=== PATIENT | male | born 1945 | race Caucasian/White ===

== ENCOUNTER 2016-07-18 06:03 | Day surgery (SDC) | payer MEDICARE, OTHER ==
[~2016-07-18] VITALS: Ht 188 cm; Wt 88.8 kg
[~2016-07-18 06:03] MED LIST: LISI-126 PO; LOSA25TA34 PO
[2016-07-18 06:05] VITALS: BP 153/82; PULSE 71; RESP 16; TEMP 98.1; O2SAT 95; Ht 188 cm; Wt 88.8 kg
--- OUTSIDE RECORDS SUMMARY | 2016-07-18 06:07 | XMS REPORT | Referral Summary ---
Author Author [facility] Organization [facility] Address Unknown Phone Unavailable Care Team Providers Care Case Assistant Name Role Phone Dillan Feldman Primary Care Physician [phone] Encounter Date(s): 08/02/15 - 08/02/15 [facility] [address] [place] [address] Discharge Diagnosis: Prostate cancer Discharge Diagnosis: Actinic keratosis Discharge Diagnosis: Hyperlipidemia Discharge Diagnosis: H/O vitamin D deficiency Discharge Diagnosis: Myalgia Discharge Diagnosis: Essential hypertension Discharge Diagnosis: Benign neoplasm of colon (disorder) Discharge Diagnosis: BPH (benign prostatic hypertrophy) Discharge Disposition: 01-Home or Self Care Attending Physician: Shahid Feldman MD Admitting Physician: Shahid Feldman MD Vital Signs Most recent to 1 oldest [Reference Range]: Temperature Tympanic 36.1 degC [36.6-38.1 degC] *LOW* (08/02/15 8:42 AM) Peripheral Pulse 88 bpm Rate [60-100 bpm] (08/02/15 8:42 AM) Blood Pressure 140/70 mmHg [90-140/60-90 mmHg] (08/02/15 8:42 AM) Mean Arterial 93 mmHg Pressure, Cuff (08/02/15 8:42 AM) Problem List Condition Effective Dates Status Health Status Informant Actinic keratosis Active (disorder)(Confirmed ) Actinic Active keratosis(Confirmed) Adenomatous colon Active polyp(Confirmed) Backache Active (finding)(Confirmed) Backache(Confirmed) Active Benign neoplasm of Active colon (disorder)(Confirmed ) BPH (benign Active prostatic hypertrophy)(Confirm ed) Chicken Active pox(Confirmed) Colonic Active polyps(Confirmed) Dyslipidemia(Confirm Active ed) Epididymal Active pain(Confirmed) Essential Active hypertension (disorder)(Confirmed ) Fibula Active fracture(Confirmed) Hyperlipidemia(Confi Active rmed) Hypertension(Confirm Active ed) Peptic ulcer 1974 Active disease(Confirmed) Prostate 2013 Active cancer(Confirmed) Thrombocytopenia(Con 2010 Active firmed) Thrombocytopenic Active disorder (disorder)(Confirmed ) Tubular adenoma of Active rectum(Confirmed) Ulcers(Confirmed) Active Allergies, Adverse Reactions, Alerts No Known Medication Allergies Medications elppa CoQ10 100 mg, Oral, Daily, 0 Refill(s) Start Date: 12/24/13 Status: Ordered Glucosamine Chondroitin MSM Complex 2 tabs, Oral, Daily, 0 Refill(s) Start Date: 12/24/13 Status: Ordered ibuprofen 200 mg, Oral, Daily, as needed for pain, 0 Refill(s) Start Date: 12/24/13 Status: Ordered losartan 50 mg oral tablet 25 mg 0.5 tabs, Oral, Daily, WILL BE DUE FOR APPT IN JULY, # 45 tabs, 0 Refill(s) , Pharmacy: [facility] #[id number], 0.5 tabs Oral Daily,Instr:WILL BE DUE FOR APPT IN JULY Start Date: 04/20/15 Status: Ordered Lutein 20 mg oral tablet 1 tabs, Oral, Daily, # 30 tabs, 0 Refill(s) Start Date: 12/24/13 Status: Ordered magnesium citrate 500 mL, Oral, Once, 0 Refill(s) Start Date: 12/24/13 Status: Ordered multivitamin 1, Oral, Daily, 0 Refill(s) Start Date: 12/24/13 Status: Ordered Probiotic Formula 1 caps, Oral, Daily, Abdominal Cramping, 0 Refill(s) Start Date: 12/24/13 Status: Ordered tamsulosin 0.4 mg oral capsule 0.8 mg 2 caps, Oral, Daily, # 180, 1 Refill(s) Start Date: 08/02/15 Status: Ordered Vitamin D with Minerals oral tablet 1 tabs, Oral, Daily, 0 Refill(s) Start Date: 12/24/13 Status: Ordered Results Hematology Most recent to 1 oldest [Reference Range]: Sed Rate [0-15] 2 (08/02/15 10:00 AM) Chemistry Most recent to 1 oldest [Reference Range]: Sodium Lvl [135-144 141 mEq/L mEq/L] (08/02/15 10:00 AM) Potassium Lvl 4.2 mEq/L [3.5-5.2 mEq/L] (08/02/15 10:00 AM) Chloride [99-111 106 mEq/L mEq/L] (08/02/15 10:00 AM) CO2 [23-31 mEq/L] 29 mEq/L (08/02/15 10:00 AM) AGAP [3-20] 6 (08/02/15 10:00 AM) BUN [8-26 mg/dL] 23 mg/dL (08/02/15 10:00 AM) Glucose Lvl [70-99 94 mg/dL mg/dL] (08/02/15 10:00 AM) Creatinine Lvl 1.31 mg/dL [0.72-1.25 mg/dL] *HI* (08/02/15 10:00 AM) eGFR [>60 mL/min] 54 mL/min 1 *ABN* (08/02/15 10:00 AM) Calcium Lvl 9.8 mg/dL [8.9-10.5 mg/dL] (08/02/15 10:00 AM) Total CK [30-200 147 U/L U/L] (08/02/15 10:00 AM) 1Result Comment: Multiply eGFR results by 1.21 for race. Immunizations Vaccine Date Refusal Reason tetanus/diphth/pertuss (Tdap) adult/adol 06/16/06 influenza virus vaccine, inactivated 01/18/15 influenza virus vaccine, inactivated1 12/24/13 influenza virus vaccine, live 01/04/13 pneumococcal 23-polyvalent vaccine 08/10/12 pneumococcal 23-polyvalent vaccine 02/09/07 1Result Comment: [12/24/2013] SEE SCANNED NOTE Procedures Procedure Date Related Diagnosis Body Site Destruction (eg, laser surgery, 08/02/15 electrosurgery, cryosurgery, chemosurgery, surgical curettement), premalignant lesions (eg, actinic keratoses); first lesion Destruction (eg, laser surgery, 08/02/15 electrosurgery, cryosurgery, chemosurgery, surgical curettement), premalignant lesions (eg, actinic keratoses); second through 14 lesions, each (List separately in addition to code for first lesion) C6-7 translaminar 06/04/12 S/P cardiac catheterization 2009 S/P colonoscopy1, 2 04/14/06 S/P hemorrhoidectomy 2006 S/P ORIF fibula 1983 Hernia repair 1967 H/O circumcision 1957 Bone marrow biopsy 1WNL, fam hx colon ca; repeat 5 years 2Colonscopy on 05/27/11 neg. 5 year follow up advised - due 2016. Social History Social History Type Response Smoking Status Never smoker Assessment and Plan Extracted from: Title: CRMMP-6 Month Author: Shahid Feldman MD Date: 08/02/15 Impression and Plan Diagnosis H/O vitamin D deficiency (GMZ51-DM Z86.39, Discharge, Medical). BPH (benign prostatic hypertrophy) (DYT84-BG N40.0, Discharge, Medical). Myalgia (VMK68-VM M79.1, Discharge, Medical). Actinic keratosis (LDP15-RA L57.0, Discharge, Medical). Essential hypertension (YHQ30-CM I10, Discharge, Medical). Hyperlipidemia (UYL51-PY E78.5, Discharge, Medical). Benign neoplasm of colon (disorder) (URG42-EF D12.6, Discharge, Medical). Prostate cancer (BMN80-XP C61, Discharge, Medical). Plan: Long discussion as documented above. He will continue to follow with Dr. Teague and Dr. Osullivan. Will check BMP, Sed Rate, CPK, Vitamin D level. Cryotherapy to the left cheek and left evangelical. After August 11, 2015, will check fasting lipid panel. Follow up in 6 months for blood pressure follow up or sooner if needed. Orders Orders (Selected) Outpatient Orders Future (On Hold) BMP: CPK: Fasting Lipid Profile: Sedimentation Rate: Vitamin D 25 Hydroxy Level: .
--- OUTSIDE RECORDS SUMMARY | 2016-07-18 06:07 | XMS REPORT | Referral Summary ---
Author Author [facility] Organization [facility] Address Unknown Phone Unavailable Care Team Providers Care Dairy Feed Sales Consultant Name Role Phone Dillan Feldman Primary Care Physician [phone] Encounter VC Date(s): 09/28/15 - 09/28/15 [facility] [address] [place] [address] Discharge Diagnosis: Depression with anxiety Discharge Disposition: 01-Home or Self Care Attending Physician: Krista Dumont APRN Admitting Physician: Krista Dumont APRN Vital Signs Most recent to 1 oldest [Reference Range]: Peripheral Pulse 92 bpm Rate [60-100 bpm] (09/28/15 11:01 AM) Blood Pressure 146/76 mmHg [90-140/60-90 mmHg] *HI* (09/28/15 11:01 AM) Problem List Condition Effective Dates Status [...] Active rmed) Hypertension(Confirm Active ed) Peptic ulcer 1973 Active disease(Confirmed) Prostate 2013 Active cancer(Confirmed) Thrombocytopenia(Con 2010 Active firmed) Thrombocytopenic Active disorder (disorder)(Confirmed ) Tubular adenoma of Active rectum(Confirmed) Ulcers(Confirmed) Active Allergies, Adverse Reactions, Alerts No Known Medication Allergies Medications citalopram 10 mg oral tablet 10 mg 1 tabs, Oral, Daily, # 30 tabs, 0 Refill(s), Pharmacy: [facility] # [id number], 1 tabs Oral Daily Start Date: 09/14/15 Status: Ordered elppa CoQ10 100 mg, Oral, Daily, 0 Refill(s) Start Date: 12/24/13 Status: Ordered Glucosamine Chondroitin MSM Complex 2 tabs, Oral, Daily, 0 Refill(s) Start Date: 12/24/13 Status: Ordered ibuprofen 200 mg, Oral, Daily, as needed for pain, 0 Refill(s) Start Date: 12/24/13 Status: Ordered losartan 50 mg oral tablet 25 mg 0.5 tabs, Oral, Daily, # 45 tabs, 1 Refill(s), Pharmacy: [facility] #[id number], 0.5 tabs Oral Daily Start Date: 08/08/15 Status: Ordered Lutein 20 mg oral tablet [...] Refill(s) Start Date: 12/24/13 Status: Ordered Results No data available for this section Immunizations Vaccine Date Refusal Reason tetanus/diphth/pertuss (Tdap) adult/adol 06/16/06 influenza virus vaccine, inactivated 01/18/15 influenza virus vaccine, inactivated1 12/24/13 influenza virus vaccine, live 01/04/13 pneumococcal 23-polyvalent vaccine 08/10/12 pneumococcal 23-polyvalent vaccine 02/09/07 zoster vaccine live 08/03/15 1Result Comment: [12/24/2013] SEE SCANNED NOTE Procedures Procedure Date Related Diagnosis Body Site C6-7 translaminar 06/04/12 S/P cardiac catheterization 2009 S/P colonoscopy1, 2 04/14/06 S/P hemorrhoidectomy 2006 S/P ORIF fibula 1982 Hernia repair 1967 H/O circumcision 1957 Bone marrow biopsy 1WNL, fam hx colon ca; repeat 5 years 2Colonscopy on 05/27/11 neg. 5 year follow up advised - due 2016. Social History Social History Type Response Smoking Status Never smoker Assessment and Plan No data available for this section
--- OUTSIDE RECORDS SUMMARY | 2016-07-18 06:07 | XMS REPORT | Referral Summary ---
Author Author [facility] Organization [facility] Address Unknown Phone Unavailable Care Team Providers Care Director Of Manufacturing Name Role Phone Dillan Feldman Primary Care Physician [phone] Encounter VC Date(s): 10/25/14 - 10/25/14 [facility] [address] [place] [address] Discharge Diagnosis: Depression with anxiety Discharge Disposition: 01-Home or Self Care Attending Physician: Krista Dumont APRN Admitting Physician: Krista Dumont APRN Vital Signs Most recent to 1 oldest [Reference Range]: Peripheral Pulse 74 bpm Rate [60-100 bpm] (10/25/14 11:05 AM) Blood Pressure 112/60 mmHg [90-140/60-90 mmHg] (10/25/14 11:05 AM) Problem List Condition Effective Dates Status [...] 0 Refill(s) Start Date: 12/24/13 Status: Ordered Flomax 0.4 mg oral capsule 0.4 mg 1 caps, Oral, Daily, # 90 caps, 4 Refill(s), Pharmacy: [facility] # [id number], 1 caps Oral Daily Start Date: 04/17/15 Status: Ordered Flomax 0.4 mg oral capsule 1 caps, Oral, Bedtime (once a day), # 90 caps, 2 Refill(s), Pharmacy: [facility], 1 caps Oral Bedtime (once a day) Start Date: 05/26/14 Status: Ordered Glucosamine Chondroitin MSM Complex 2 tabs, Oral, Daily, 0 Refill(s) Start Date: 12/24/13 Status: Ordered ibuprofen 200 mg, Oral, Daily, as needed for pain, 0 Refill(s) Start Date: 12/24/13 Status: Ordered losartan 50 mg oral tablet 25 mg 0.5 tabs, Oral, Daily, WILL BE DUE FOR APPT IN JULY, # 45 tabs, 0 Refill(s) , Pharmacy: [facility] #[id number], 0.5 tabs Oral Daily,Instr:WILL BE DUE FOR [...] 0 Refill(s) Start Date: 12/24/13 Status: Ordered Vitamin D with Minerals oral [...] translaminar 06/04/12 S/P cardiac catheterization 2009 S/P colonoscopy1 04/14/06 S/P hemorrhoidectomy 2006 S/P ORIF fibula 1983 Hernia repair 1967 H/O circumcision 1957 Bone marrow biopsy 1WNL, fam hx colon ca; repeat 5 years Social History Social History Type Response Smoking Status Never smoker Assessment and Plan No data available for this section
--- OUTSIDE RECORDS SUMMARY | 2016-07-18 06:07 | XMS REPORT | Referral Summary ---
Author Author [facility] Organization [facility] Address Unknown Phone Unavailable Care Team Providers Care Machine Tool Electrician Name Role Phone Dillan Feldman Primary Care Physician [phone] Encounter VC Date(s): 10/23/15 - 10/23/15 [facility] [address] [place], [place] [address] Discharge Disposition: 01-Home or Self Care Attending Physician: Arnol Teague MD Admitting Physician: Arnol Teague MD Vital Signs Most recent to 1 oldest [Reference Range]: Blood Pressure 136/84 mmHg [90-140/60-90 mmHg] (10/23/15 1:18 PM) Problem List Condition Effective Dates Status Health [...] Daily, # 30 tabs, 0 Refill(s), Pharmacy: [facility] # [id number], 1 tabs Oral Daily Start Date: 09/14/15 [...] Daily, # 45 tabs, 1 Refill(s), Pharmacy: [facility] #[id number], 0.5 tabs Oral Daily Start Date: 08/08/15 [...] 0.8 mg 2 caps, Oral, Daily, # 180 caps, 0 Refill(s), Pharmacy: [facility] #[id number], 2 caps Oral Daily Start Date: 10/02/15 Status: Ordered tamsulosin 0.4 mg oral capsule [...]
--- OUTSIDE RECORDS SUMMARY | 2016-07-18 06:07 | XMS REPORT ---
Author Author Panchito Camacho Organization [employer] Address Unknown Phone Unavailable Care Team Providers Care Production Director Name Role Phone Panchito Camacho CP Unavailable Allergies No Known Allergies Problems Problem Type Condition ICD-9 Code Onset Dates Condition Status Problem HTN [Hypertension] 401.9 Active Medications No Known Medications Results No Known Results Summary Purpose [employer] Submission
--- OUTSIDE RECORDS SUMMARY | 2016-07-18 06:07 | XMS REPORT | Referral Summary ---
Author Author [facility] Organization [facility] Address Unknown Phone Unavailable Care Team Providers Care Coordinator Volunteer Services Name Role Phone Dillan Feldman Primary Care Physician [phone] Encounter VC Date(s): 08/04/14 - 08/04/14 [facility] [address] [place] [address] Discharge Diagnosis: Prostate cancer Discharge Diagnosis: Adenomatous colon polyp Discharge Diagnosis: Actinic keratosis Discharge Diagnosis: Hyperlipidemia Discharge Diagnosis: Essential hypertension Discharge Diagnosis: Thrombocytopenic disorder Discharge Disposition: 01-Home or Self Care Attending Physician: Shahid Feldman MD Admitting Physician: Shahdi Feldman MD Vital Signs Most recent to 1 oldest [Reference Range]: Temperature Tympanic 37 degC [36.6-38.1 degC] (08/04/14 8:35 AM) Peripheral Pulse 72 bpm Rate [60-100 bpm] (08/04/14 8:35 AM) Blood Pressure 146/70 mmHg [90-140/60-90 mmHg] *HI* (08/04/14 8:35 AM) Problem List Condition Effective Dates Status [...] # 90 caps, 2 Refill(s), Pharmacy: [facility], 1 caps Oral Bedtime (once a day) Start Date: 05/26/14 Status: Ordered Glucosamine Chondroitin MSM Complex 2 tabs, Oral, Daily, 0 Refill(s) Start Date: 12/24/13 Status: Ordered ibuprofen 200 mg, Oral, Daily, as needed for pain, 0 Refill(s) Start Date: 12/24/13 Status: Ordered losartan 50 mg oral tablet 25 mg 0.5 tabs, Oral, Daily, # 45 tabs, 3 Refill(s), 0.5 tabs Oral Daily Start Date: 09/16/14 Status: Ordered Lutein 20 mg oral tablet 1 tabs, Oral, Daily, # 30 tabs, 0 Refill(s) Start Date: 12/24/13 Status: Ordered magnesium citrate 500 mL, Oral, Once, 0 Refill(s) Start Date: 12/24/13 Status: Ordered multivitamin 1, Oral, Daily, 0 Refill(s) Start Date: 12/24/13 Status: Ordered Probiotic Formula 1 caps, Oral, Daily, Abdominal Cramping, 0 Refill(s) Start Date: 12/24/13 Status: Ordered Vitamin C 150 mg, Oral, Daily, 0 Refill(s) Start Date: 12/24/13 Status: Ordered Vitamin D with Minerals oral tablet 1 tabs, Oral, Daily, 0 Refill(s) Start Date: 12/24/13 Status: Ordered Results No data available for this section Immunizations Vaccine Date Refusal Reason tetanus/diphth/pertuss (Tdap) adult/adol 06/16/06 influenza virus vaccine, inactivated1 12/24/13 influenza virus vaccine, live 01/04/13 pneumococcal 23-polyvalent vaccine 08/10/12 pneumococcal 23-polyvalent vaccine 02/09/07 1Result Comment: [12/24/2013] SEE SCANNED NOTE Procedures Procedure Date Related Diagnosis Body Site Destruction (eg, laser surgery, 08/04/14 electrosurgery, cryosurgery, chemosurgery, surgical curettement), premalignant lesions (eg, actinic keratoses); first lesion Destruction (eg, laser surgery, 08/04/14 electrosurgery, cryosurgery, chemosurgery, surgical curettement), premalignant lesions (eg, actinic keratoses); first lesion Destruction (eg, laser surgery, 08/04/14 electrosurgery, cryosurgery, chemosurgery, surgical curettement), premalignant lesions (eg, actinic keratoses); first lesion Destruction (eg, laser surgery, 08/04/14 electrosurgery, cryosurgery, chemosurgery, surgical curettement), premalignant lesions (eg, actinic keratoses); second through 14 lesions, each (List separately in addition to code for first lesion) Destruction (eg, laser surgery, 08/04/14 electrosurgery, cryosurgery, chemosurgery, surgical curettement), premalignant lesions (eg, actinic keratoses); second through 14 lesions, each (List separately in addition to code for first lesion) Destruction (eg, laser surgery, 08/04/14 electrosurgery, cryosurgery, chemosurgery, surgical curettement), premalignant lesions [...] smoker Assessment and Plan Extracted from: Title: Ambulatory Patient Education Author: Shahid Feldman MD Date: Family Medicine Actinic Keratosis Actinic keratosis is a precancerous growth on the skin. This means it could develop into skin cancer if it is not treated. About 1% of actinic keratoses turn into skin cancer within a year. It is important to have all such growths removed to prevent them from developing into skin cancer. CAUSES Actinic keratosis is caused by getting too much ultraviolet (UV) radiation from the sun or other UV light sources. RISK FACTORS Factors that increase your chances of getting actinic keratosis include: Having light-colored skin and blue eyes. Having blonde or red hair. Spending a lot of time in the sun. Age. The risk of actinic keratosis increases with age. SYMPTOMS Actinic keratosis growths look like scaly, rough spots of skin. They can be as small as a pinhead or as big as a quarter. They may itch, hurt, or feel sensitive. Sometimes there is a little tag of pink or [place] skin growing off them. In some cases, actinic keratoses are easier felt than seen. They do not go away with the use of moisturizing lotions or creams. Actinic keratoses appear most often on areas of skin that get a lot of sun exposure. These areas include the: Scalp. Face. Ears. Lips. Upper back. Backs of the hands. Forearms. DIAGNOSIS Your caregiver can usually tell what is wrong by performing a physical exam. A tissue sample (biopsy ) may also be taken and examined under a microscope. TREATMENT Actinic keratosis can be treated several ways. Most treatments can be done in your caregiver's office. Treatment options may include: Curettage. A tool is used to gently scrape off the growth. Cryosurgery. Liquid nitrogen is applied to the growth to freeze it. The growth eventually falls off the skin. Medicated creams, such as 5-fluorouracil or imiquimod. The medicine destroys the cells in the growth. Chemical peels. Chemicals are applied to the growth and the outer layers of skin are peeled off. Photodynamic therapy. A drug that makes your skin more sensitive to light is applied to the skin. A strong, blue light is aimed at the skin and destroys the growth. PREVENTION To prevent future sun damage: Try to avoid the sun between 10:00 a.m. and 4:00 p.m. when it is the strongest. Use a sunscreen or sunblock with SPF 30 or greater. Apply sunscreen at least 30 minutes before exposure to the sun. Always wear protective hats, clothing, and sunglasses with UV protection. Avoid medicines, herbs, and foods that increase your sensitivity to sunlight. Avoid tanning beds. HOME CARE INSTRUCTIONS If your skin was covered with a bandage, change and remove the bandage as directed by your caregiver. Keep the treated area dry as directed by your caregiver. Apply any creams as prescribed by your caregiver. Follow the directions carefully. Check your skin regularly for any changes. Visit a skin doctor (steamboat captain ) every year for a skin exam. SEEK MEDICAL CARE IF: Your skin does not heal and becomes irritated, red, or bleeds. You notice any changes or new growths on your skin. Document Released: 05/23/2009 Document Revised: 05/18/2012 Document Reviewed: [employer] Patient Information 2014 [employer] [facility]. No follow up information was provided. Extracted from: Title: CRMMP Author: Shahid Feldman MD Date: 08/04/14 Assessment/Plan Actinic keratosis Liquid nitrogen treatment 2 lesions. Adenomatous colon polyp Repeat colonoscopy due in 2016. Essential hypertension Stable. Continue present care. Hyperlipidemia Check fasting lipids another day. Prostate cancer Following with Dr. Teague. Seems to be stable. Thrombocytopenic disorder Following with Dr. Osullivan, repeat CBC due in March 2015. Neck/back pain and slight right arm weakness discussed. Conservative approach seems appropriate, continue with strengthening exercises as he has been doing and follow-up as needed. Follow-up with me in 6 months. We will send copies of the dictation to Dr. Osullivan and Dr. Teague.
--- OUTSIDE RECORDS SUMMARY | 2016-07-18 06:07 | XMS REPORT | Referral Summary ---
Author Author [facility] Organization [facility] Address Unknown Phone Unavailable Care Team Providers Care Chemical Inspector Name Role Phone Dillan Feldman Primary Care Physician [phone] Encounter VC Date(s): 01/12/16 - 01/12/16 [facility] [address] [place] [address] Discharge Diagnosis: Encounter for immunization Discharge Disposition: 01-Home or Self Care Attending Physician: Joshua Vaca APRN Admitting Physician: Joshua Vaca APRN Vital Signs No data available for this section Problem List Condition Effective Dates Status Health [...] Oral, Daily, # 45 tabs, 1 Refill(s), 0.5 tabs Oral Daily Start Date: 11/22/15 Status: Ordered Lutein 20 mg oral tablet [...] Status: Ordered tamsulosin 0.4 mg oral capsule See Instructions, TAKE TWO CAPSULES BY MOUTH DAILY, # 180 caps, eRx: [facility] #[id number], TAKE TWO CAPSULES BY MOUTH DAILY Start Date: 01/09/16 Status: Ordered Vitamin D with Minerals oral tablet 1 tabs, Oral, Daily, 0 Refill(s) Start Date: 12/24/13 Status: Ordered Results No data available for this section Immunizations Vaccine Date Refusal Reason tetanus/diphth/pertuss (Tdap) adult/adol 06/16/06 influenza virus vaccine, inactivated 01/12/16 influenza virus vaccine, inactivated 01/18/15 influenza virus [...]
--- OUTSIDE RECORDS SUMMARY | 2016-07-18 06:07 | XMS REPORT | Referral Summary ---
Author Author [facility] Organization [facility] Address Unknown Phone Unavailable Care Team Providers Care Mortician Investigator Name Role Phone Dillan Feldman Primary Care Physician [phone] Encounter VC Date(s): 09/14/15 - 09/14/15 [facility], Family [address] [place] [id number] Discharge Disposition: 01-Home or Self Care Attending Physician: Krista Dumont APRN Admitting Physician: Krista Dumont APRN Vital Signs Most recent to 1 oldest [Reference Range]: Peripheral Pulse 78 bpm Rate [60-100 bpm] (09/14/15 10:59 AM) Blood Pressure 128/66 mmHg [90-140/60-90 mmHg] (09/14/15 10:59 AM) Problem List Condition Effective Dates Status [...] Daily, # 30 tabs, 0 Refill(s), Pharmacy: [facility] # [id number], 1 tabs Oral Daily Start Date: 09/14/15 [...] Daily, # 45 tabs, 1 Refill(s), Pharmacy: [facility] #[id number], 0.5 tabs Oral Daily Start Date: 08/08/15 [...]
--- OUTSIDE RECORDS SUMMARY | 2016-07-18 06:07 | XMS REPORT | Referral Summary ---
Author Author [facility] Organization [facility] Address Unknown Phone Unavailable Care Team Providers Care Head Athletic Trainer Name Role Phone Dillan Feldman Primary Care Physician [phone] Encounter VC Date(s): 08/17/15 - 08/17/15 [facility] [address] [place] [address] Discharge Disposition: 01-Home or Self Care Attending Physician: Krista Dumont APRN Admitting Physician: Krista Dumont APRN Vital Signs Most recent to 1 oldest [Reference Range]: Peripheral Pulse 72 bpm Rate [60-100 bpm] (08/17/15 10:57 AM) Blood Pressure 110/64 mmHg [90-140/60-90 mmHg] (08/17/15 10:57 AM) Problem List Condition Effective Dates Status [...] Active disease(Confirmed) Prostate 2013 Active cancer(Confirmed) Thrombocytopenia(Con 2009 Active firmed) Thrombocytopenic Active disorder (disorder)(Confirmed ) [...] Daily, # 45 tabs, 1 Refill(s), Pharmacy: [facility] #[id number], 0.5 tabs Oral Daily Start Date: 08/08/15 [...]
--- OUTSIDE RECORDS SUMMARY | 2016-07-18 06:07 | XMS REPORT | Referral Summary ---
Author Author [facility] Organization [facility] Address Unknown Phone Unavailable Care Team Providers Care Commission Associate Name Role Phone Dillan Feldman Primary Care Physician [phone] Encounter VC Date(s): 08/04/14 - 08/04/14 [facility] [address] [place] [address]- Discharge Diagnosis: Prostate cancer Discharge Diagnosis: Adenomatous [...] day), # 90 caps, 2 Refill(s), Pharmacy: [facility], 1 caps Oral Bedtime (once [...] for any changes. Visit a skin doctor (photography manager ) every year for a skin exam. SEEK MEDICAL CARE IF: Your skin does not heal and becomes irritated, red, or bleeds. You notice any changes or new growths on your skin. Document Released: 05/23/2009 Document Revised: 05/18/2012 Document Reviewed: ExitCare Patient Information 2014 [employer] [facility]. No follow up information was provided. [...]
--- OUTSIDE RECORDS SUMMARY | 2016-07-18 06:07 | XMS REPORT | Referral Summary ---
Author Author [facility] Organization [facility] Address Unknown Phone Unavailable Care Team Providers Care Clinical Documentation Nurse Name Role Phone Dillan Feldman Primary Care Physician [phone] Encounter VC Date(s): 08/04/14 - 08/04/14 [facility] [address] [place] [address]- Discharge Diagnosis: Prostate cancer Discharge Diagnosis: Adenomatous [...] day), # 90 caps, 2 Refill(s), [facility], 1 caps Oral Bedtime (once a [...] for any changes. Visit a skin doctor (meal room hand ) every year for a skin exam. SEEK MEDICAL CARE IF: Your skin does not heal and becomes irritated, red, or bleeds. You notice any changes or new growths on your skin. Document Released: 05/23/2009 Document Revised: 05/18/2012 Document Reviewed: ExitCare Patient Information 2013 [employer]. No follow up information was provided. Extracted [...]
--- OUTSIDE RECORDS SUMMARY | 2016-07-18 06:08 | XMS REPORT | Referral Summary ---
Author Author [facility] Organization [facility] Address Unknown Phone Unavailable Care Team Providers Care Paleontology Teacher Name Role Phone Dillan Feldman Primary Care Physician [phone] Encounter VC Date(s): 07/26/15 - 07/26/15 [facility] [address] [place], [place] [address] Discharge Disposition: 01-Home or Self Care Attending Physician: Arnol Teague MD Admitting Physician: Arnol Teague MD Vital Signs Most recent to 1 oldest [Reference Range]: Respiratory Rate 20 br/min [14-20 br/min] (07/26/15 9:34 AM) Problem List Condition Effective Dates Status [...] Daily, # 90 caps, 4 Refill(s), Pharmacy: [facility] # [id number], 1 caps Oral Daily Start Date: 04/17/15 Status: Ordered Flomax 0.4 mg oral capsule 1 caps, Oral, Bedtime (once a day), # 90 caps, 2 Refill(s), Pharmacy: [facility], 1 caps Oral Bedtime (once a [...] # 45 tabs, 0 Refill(s) , Pharmacy: [facility] #[id number], 0.5 tabs Oral Daily,Instr:WILL BE DUE FOR [...] catheterization 2009 S/P colonoscopy1 04/14/06 S/P hemorrhoidectomy 2007 S/P ORIF fibula 1983 Hernia repair 1967 H/O circumcision 1958 Bone marrow biopsy 1WNL, fam hx colon ca; repeat 5 years Social History Social History Type Response Smoking Status Never smoker Assessment and Plan No data available for this section
--- OUTSIDE RECORDS SUMMARY | 2016-07-18 06:08 | XMS REPORT | Referral Summary ---
Author Author [facility] Organization [facility] Address Unknown Phone Unavailable Care Team Providers Care Coyote Hunter Name Role Phone Dillan Feldman Primary Care Physician [phone] Encounter VC Date(s): 04/17/16 - 04/17/16 [facility] [address] [place] [address] Discharge Diagnosis: Prostate cancer Discharge Diagnosis: Post-op pain Discharge Diagnosis: Essential hypertension Discharge Disposition: 01-Home or Self Care Attending Physician: Shahid Feldman MD Admitting Physician: Shahid Feldman MD Vital Signs Most recent to 1 oldest [Reference Range]: Peripheral Pulse 80 bpm Rate [60-100 bpm] (04/17/16 10:24 AM) Blood Pressure 120/60 mmHg [90-140/60-90 mmHg] (04/17/16 10:24 AM) Problem List Condition Effective Dates Status [...] 1974 Active disease(Confirmed) Prostate 2013 Active cancer(Confirmed) Right bundle branch Active block(Confirmed) Thrombocytopenia(Con 2010 Active firmed) Thrombocytopenic Active disorder (disorder)(Confirmed ) Tubular adenoma of Active rectum(Confirmed) Ulcers(Confirmed) Active Allergies, Adverse Reactions, Alerts No Known Medication Allergies Medications Bactrim DS 800 mg-160 mg oral tablet See Instructions, WILL FINISH TOMORROW, 0 Refill(s) Start Date: 04/17/16 Status: Ordered Dulcolax Stool Softener mg, Oral, Daily, as needed for constipation, 0 Refill(s) Start Date: 04/17/16 Status: Ordered elppa CoQ10 100 mg, Oral, Daily, 0 Refill(s) Start Date: 12/24/13 Status: Ordered Glucosamine Chondroitin MSM Complex 2 tabs, Oral, Daily, 0 Refill(s) Start Date: 12/24/13 Status: Ordered ibuprofen 200 mg, Oral, Daily, as needed for pain, 0 Refill(s) Start Date: 12/24/13 Status: Ordered losartan 25 mg oral tablet 25 mg 1 tabs, Oral, Daily, # 90 tabs, 3 Refill(s), Pharmacy: [facility] # [id number], 1 tabs Oral Daily Start Date: 02/08/16 Status: Ordered Lutein 20 mg oral tablet [...] No data available for this section Immunizations Given and Recorded Vaccine Date Status Refusal Reason tetanus/diphth/pertuss (Tdap) adult/adol 06/16/06 Recorded influenza virus vaccine, inactivated 01/12/16 Given influenza virus vaccine, inactivated 01/18/15 Given influenza virus vaccine, inactivated1 12/24/13 Recorded influenza virus vaccine, live 01/04/13 Given pneumococcal 13-valent conjugate vaccine2 08/10/12 Given pneumococcal 23-polyvalent vaccine 08/10/12 Given pneumococcal 23-polyvalent vaccine 02/09/07 Recorded zoster vaccine live 08/03/15 Given 1Result Comment: [12/24/2013] SEE SCANNED NOTE 2Result Comment: [11/03/2014 Uncharted] Uploaded in Error - CC Procedures Procedure Date Related Diagnosis Body Site [...] smoker Assessment and Plan Extracted from: Title: Postoperative Visit Author: Shahid Feldman MD Date: 04/17/16 Impression and Plan Diagnosis Essential hypertension (OCU30-MB I10, Discharge, Medical). Post-op pain (XVY18-LR G89.18, Discharge, Medical). Prostate cancer (NSZ51-NT C61, Discharge, Medical).
--- OUTSIDE RECORDS SUMMARY | 2016-07-18 06:08 | XMS REPORT | Referral Summary ---
Author Author [facility] Organization [facility] Address Unknown Phone Unavailable Care Team Providers Care Mud Mill Tender Name Role Phone Dillan Feldman Primary Care Physician [phone] Encounter Date(s): 02/08/16 - 02/08/16 [facility] [address] [place] [address] Discharge Diagnosis: Dyslipidemia Discharge Diagnosis: Seborrheic keratoses Discharge Diagnosis: Prostate cancer Discharge Diagnosis: Thrombocytopenia Discharge Diagnosis: Essential hypertension Discharge Diagnosis: Subcutaneous mass Discharge Disposition: 01-Home or Self Care Attending Physician: Shahid Feldman MD Admitting Physician: Shahid Feldman MD Vital Signs Most recent to 1 oldest [Reference Range]: Temperature Tympanic 36 degC [36.6-38.1 degC] *LOW* (02/08/16 2:52 PM) Peripheral Pulse 84 bpm Rate [60-100 bpm] (02/08/16 2:52 PM) Blood Pressure 122/78 mmHg [90-140/60-90 mmHg] (02/08/16 2:52 PM) Problem List Condition Effective Dates Status [...] Daily, # 90 tabs, 3 Refill(s), Pharmacy: [facility] # [id number], 1 tabs Oral Daily Start Date: 02/08/16 [...] BY MOUTH DAILY, # 180 caps, eRx: [facility] #[id number], TAKE TWO CAPSULES BY MOUTH DAILY Start [...] smoker Assessment and Plan Extracted from: Title: CDM OV Author: Shahid Feldman MD Date: 02/08/16 Impression and Plan Diagnosis Dyslipidemia (BNA06-KV E78.5, Discharge, Medical). Essential hypertension (QNK31-UF I10, Discharge, Medical). Prostate cancer (JWZ58-PI C61, Discharge, Medical). Thrombocytopenia (CAB50-XI D69.6, Discharge, Medical). Seborrheic keratoses (GFY58-KO L82.1, Discharge, Medical). Subcutaneous mass (ZAI99-CS R22.9, Discharge, Medical). Orders Orders (Selected) Outpatient Orders Future (On Hold) BMP: Prescriptions Prescribed losartan 25 mg oral tablet: 25 mg=1 tabs, Oral, Daily, 90 tabs, 3 Refill(s).
--- OUTSIDE RECORDS SUMMARY | 2016-07-18 06:08 | XMS REPORT | Referral Summary ---
Author Author [facility] Organization [facility] Address Unknown Phone Unavailable Care Team Providers Care Ambulance Dispatcher Name Role Phone Dillan Feldman Primary Care Physician [phone] Encounter VC Date(s): 12/11/15 - 12/11/15 [facility] [address] [place], [place] [address] Discharge Disposition: 01-Home or Self Care Attending Physician: Arnol Teague MD Admitting Physician: Arnol Teague MD Vital Signs Most recent to 1 oldest [Reference Range]: Blood Pressure 130/80 mmHg [90-140/60-90 mmHg] (12/11/15 2:19 PM) Problem List Condition Effective Dates Status [...] Daily, # 30 tabs, 0 Refill(s), Pharmacy: [facility] # [id number], 1 tabs Oral Daily Start Date: 09/14/15 [...] Daily, # 180 caps, 0 Refill(s), Pharmacy: [facility] #[id number], 2 caps Oral Daily Start Date: 10/02/15 [...] Date Related Diagnosis Body Site C6-7 translaminar 3/28/13 S/P cardiac catheterization 2009 S/P colonoscopy1, 2 [...]
--- OUTSIDE RECORDS SUMMARY | 2016-07-18 06:08 | XMS REPORT | Referral Summary ---
Author Author [facility] Organization [facility] Address Unknown Phone Unavailable Care Team Providers Care Ad Taker Name Role Phone Dillan Feldman Primary Care Physician [phone] Encounter VC Date(s): 08/04/14 - 08/04/14 [facility] [address] [place] [address]- Discharge Diagnosis: Prostate cancer Discharge Diagnosis: Adenomatous [...] day), # 90 caps, 2 Refill(s), Pharmacy: [facility], 1 caps Oral Bedtime (once [...] for any changes. Visit a skin doctor (director of analytical development ) every year for a skin exam. SEEK MEDICAL CARE IF: Your skin does not heal and becomes irritated, red, or bleeds. You notice any changes or new growths on your skin. Document Released: 05/23/2009 Document Revised: 05/18/2012 Document Reviewed: ExitCare Patient Information 2014 [employer] [facility]. No follow up information was provided. [...]
--- OUTSIDE RECORDS SUMMARY | 2016-07-18 06:08 | XMS REPORT | Referral Summary ---
Author Author [facility] Organization [facility] Address Unknown Phone Unavailable Care Team Providers Care Low Emission Automobile Designer Name Role Phone Dillan Feldman Primary Care Physician [phone] Encounter Date(s): 10/31/15 - 10/31/15 [facility] [address] [place], [place] [address] Discharge Diagnosis: PC (prostate cancer) Discharge Disposition: 01-Home or Self Care Attending Physician: Arnol Teague MD Admitting Physician: Arnol Teague MD Vital Signs No data available for this [...] # 30 tabs, 0 Refill(s), Pharmacy: [facility] # [id number], 1 tabs Oral Daily Start Date: 09/14/15 [...] # 45 tabs, 1 Refill(s), Pharmacy: [facility] #[id number], 0.5 tabs Oral Daily Start Date: 08/08/15 [...] Daily, # 180 caps, 0 Refill(s), Pharmacy: [facility] #[id number], 2 caps Oral Daily Start Date: 10/02/15 [...] smoker Assessment and Plan Extracted from: Title: Office Visit Note Author: Arnol Teague MD Date: 10/31/15 Assessment/Plan 1.PC (prostate cancer)
--- OUTSIDE RECORDS SUMMARY | 2016-07-18 06:08 | XMS REPORT | Referral Summary ---
Author Organization Unknown Address Unknown Phone Unavailable Care Team Providers Care Dentistry Teacher Name Role Phone Dillan Feldman Primary Care Physician [phone] Encounter VC Date(s): 05/20/14 - 05/20/14 [facility] [address] [place] [address] Discharge Diagnosis: Myalgia Discharge Diagnosis: Thrombocytopenia Discharge Diagnosis: Backache Discharge Disposition: Home or Self Care Attending Physician: Shahid Feldman MD Admitting Physician: Shahid Feldman MD Vital Signs Most recent to 1 oldest [Reference Range]: Peripheral Pulse 70 bpm Rate [60-100 bpm] (05/20/14 7:43 AM) Blood Pressure 140/62 mmHg [90-140/60-90 mmHg] (05/20/14 7:43 AM) Problem List Condition Effective Dates Status [...] 0.4 mg oral capsule 1 caps, Oral, Daily, # 30 caps, 0 Refill(s) Start Date: 10/19/13 Status: Ordered Glucosamine Chondroitin MSM Complex 2 tabs, Oral, Daily, 0 Refill(s) Start Date: 12/24/13 Status: Ordered ibuprofen 200 mg, Oral, Daily, as needed for pain, 0 Refill(s) Start Date: 12/24/13 Status: Ordered losartan 25 mg oral tablet 1 tabs, Oral, Daily, # 30 tabs, 0 Refill(s) Start Date: 10/19/13 Status: Ordered Lutein 20 mg oral tablet [...] 12/24/13 influenza virus vaccine, live 01/04/13 pneumococcal 13-valent conjugate vaccine 08/10/12 pneumococcal 23-polyvalent vaccine 02/09/07 1Result [...] Author: Shahid Feldman MD Date: Family Medicine Thrombocytopenia Thrombocytopenia means there are not enough platelets in your blood. Platelets are tiny cells in your blood. When you start bleeding, platelets clump together around the cut or injury to stop the bleeding. This process is called blood clotting. Not having enough platelets can cause bleeding problems. HOME CARE Check your skin and inside your mouth for bruises or blood as told by your doctor. Check your spit (sputum ), pee (urine ), and poop (stool ) for blood as told by your doctor. Do not do activities that can cause bumps or bruises until your doctor says it is okay. Be careful not to cut yourself when you shave or use scissors, needles, knives, or other tools. Be careful not to burn yourself when you iron or cook. Ask your doctor if you can drink alcohol. Only take medicines as told by your doctor. Tell all your doctors and your dentist that you have this bleeding problem. GET HELP RIGHT AWAY IF: You are bleeding anywhere on your body. You are bleeding or have bruises without knowing why. You have blood in your spit, pee, or poop. MAKE SURE YOU: Understand these instructions. Will watch your condition. Will get help right away if you are not doing well or get worse. Document Released: 02/13/2012 Document Revised: 05/18/2012 Document Reviewed: [facility] Patient Information 2014 [employer]. No follow up information was provided. Extracted from: Title: Office Visit Note Author: Shahid Feldman MD Date: 05/20/14 Assessment/Plan Backache Myalgia Thrombocytopenia We discussed the situation. I think his myalgias/muscle aches are part of an age-related change and due to his general activity. On the whole this general activity is good and I encouraged him to continue that. Don't see any evidence to suggest a more significant disease process. Symptomatic management is appropriate. Certainly stretching may be helpful. However he may try medication including Tylenol or ibuprofen. We discussed risks versus benefit of ibuprofen and particularly discussed potential adverse effects on the platelets. Since his recent platelet count was okay and he has not been having bleeding, but seems to be a fairly minimal risk. Other risks might include upper GI irritation, effects on kidney function, and elevation in blood pressure with increased risk of heart disease. All of these seem to be fairly mild and since he is doing well it seems reasonable to use ibuprofen when necessary wearing his upcoming travel. Questions answered. Follow-up when necessary.
--- OUTSIDE RECORDS SUMMARY | 2016-07-18 06:08 | XMS REPORT | Referral Summary ---
Author Author [facility] Organization [facility] Address Unknown Phone Unavailable Care Team Providers Care Pourer Metal Name Role Phone Dillan Feldman Primary Care Physician [phone] Encounter VC Date(s): 08/04/14 - 08/04/14 [facility] [address] [place] [address]- Discharge Diagnosis: Prostate cancer Discharge Diagnosis: Adenomatous [...] day), # 90 caps, 2 Refill(s), Pharmacy: [facility], 1 caps Oral Bedtime (once a [...] for any changes. Visit a skin doctor (certified pharmacy technician ) every year for a skin exam. SEEK MEDICAL CARE IF: Your skin does not heal and becomes irritated, red, or bleeds. You notice any changes or new growths on your skin. Document Released: 05/23/2009 Document Revised: 05/18/2012 Document Reviewed: ExitCare Patient Information 2014 [employer] [facility]. No follow up information was provided. [...]
--- OUTSIDE RECORDS SUMMARY | 2016-07-18 06:08 | XMS REPORT | Referral Summary ---
Author Author [facility], Family Medicine Organization [facility] Address Unknown Phone Unavailable Care Team Providers Care Behavioral Health Worker Name Role Phone Dillan Feldman Primary Care Physician [phone] Encounter VC Date(s): 01/30/15 - 01/30/15 [facility] [address] [place] [id number] Discharge Diagnosis: Concern about heart disease without diagnosis Discharge Diagnosis: Essential hypertension Discharge Diagnosis: Prostate cancer Discharge Disposition: 01-Home or Self Care Attending Physician: Shahid Feldman MD Admitting Physician: Shahid Feldman MD Vital Signs Most recent to 1 oldest [Reference Range]: Temperature Tympanic 36 degC [36.6-38.1 degC] *LOW* (01/30/15 9:49 AM) Peripheral Pulse 80 bpm Rate [60-100 bpm] (01/30/15 9:49 AM) Blood Pressure 143/79 mmHg [90-140/60-90 mmHg] *HI* (01/30/15 9:49 AM) Problem List Condition Effective Dates Status [...] day), # 90 caps, 2 Refill(s), [facility], 1 caps Oral Bedtime (once a [...] 2006 S/P ORIF fibula 1983 Hernia repair 1968 H/O circumcision 1957 Bone marrow biopsy 1WNL, fam hx colon ca; repeat 5 years Social History Social History Type Response Smoking Status Never smoker Assessment and Plan Extracted from: Title: Ambulatory Patient Education Author: Shahid Feldman MD Date: Preventive Medicine Managing Your High Blood Pressure Blood pressure is a measurement of how forceful your blood is pressing against the church of the arteries. Arteries are muscular tubes within the circulatory system. Blood pressure does not stay the same. Blood pressure rises when you are active, excited, or nervous; and it lowers during sleep and relaxation. If the numbers measuring your blood pressure stay above normal most of the time, you are at risk for health problems. High blood pressure (hypertension) is a long-term (chronic) condition in which blood pressure is elevated. A blood pressure reading is recorded as two numbers, such as 120 over 80 (or 120 /80). The first, higher number is called the systolic pressure. It is a measure of the pressure in your arteries as the heart beats. The second, lower number is called the diastolic pressure. It is a measure of the pressure in your arteries as the heart relaxes between beats. Keeping your blood pressure in a normal range is important to your overall health and prevention of health problems, such as heart disease and stroke. When your blood pressure is uncontrolled, your heart has to work harder than normal. High blood pressure is a very common condition in adults because blood pressure tends to rise with age. Men and women are equally likely to have hypertension but at different times in life. Before age 45, men are more likely to have hypertension. After 65 years of age, women are more likely to have it. Hypertension is especially common in Americans. This condition often has no signs or symptoms. The cause of the condition is usually not known. Your caregiver can help you come up with a plan to keep your blood pressure in a normal, healthy range. BLOOD PRESSURE STAGES Blood pressure is classified into four stages: normal, prehypertension, stage 1 , and stage 2. Your blood pressure reading will be used to determine what type of treatment, if any, is necessary. Appropriate treatment options are tied to these four stages: Normal Systolic pressure (mm Hg): below 120. Diastolic pressure (mm Hg): below 80. Prehypertension Systolic pressure (mm Hg): 120 to 139. Diastolic pressure (mm Hg): 80 to 89. Stage1 Systolic pressure (mm Hg): 140 to 159. Diastolic pressure (mm Hg): 90 to 99. Stage2 Systolic pressure (mm Hg): 160 or above. Diastolic pressure (mm Hg): 100 or above. RISKS RELATED TO HIGH BLOOD PRESSURE Managing your blood pressure is an important responsibility. Uncontrolled high blood pressure can lead to: A heart attack. A stroke. A weakened blood vessel (aneurysm). Heart failure. Kidney damage. Eye damage. Metabolic syndrome. Memory and concentration problems. HOW TO MANAGE YOUR BLOOD PRESSURE Blood pressure can be managed effectively with lifestyle changes and medicines ( if needed). Your caregiver will help you come up with a plan to bring your blood pressure within a normal range. Your plan should include the following: Education Read all information provided by your caregivers about how to control blood pressure. Educate yourself on the latest guidelines and treatment recommendations. New research is always being done to further define the risks and treatments for high blood pressure. Lifestylechanges Control your weight. Avoid smoking. Stay physically active. Reduce the amount of salt in your diet. Reduce stress. Control any chronic conditions, such as high cholesterol or diabetes. Reduce your alcohol intake. Medicines Several medicines (antihypertensive medicines) are available, if needed, to bring blood pressure within a normal range. Communication Review all the medicines you take with your caregiver because there may be side effects or interactions. Talk with your caregiver about your diet, exercise habits, and other lifestyle factors that may be contributing to high blood pressure. See your caregiver regularly. Your caregiver can help you create and adjust your plan for managing high blood pressure. RECOMMENDATIONS FOR TREATMENT AND FOLLOW-UP The following recommendations are based on current guidelines for managing high blood pressure in non adults. Use these recommendations to identify the proper follow-up period or treatment option based on your blood pressure reading. You can discuss these options with your caregiver. Systolic pressure of 120 to 139 or diastolic pressure of 80 to 89: Follow up with your caregiver as directed. Systolic pressure of 140 to 160 or diastolic pressure of 90 to 100: Follow up with your caregiver within 2 months. Systolic pressure above 160 or diastolic pressure above 100: Follow up with your caregiver within 1 month. Systolic pressure above 180 or diastolic pressure above 110: Consider antihypertensive therapy; follow up with your caregiver within 1 week. Systolic pressure above 200 or diastolic pressure above 120: Begin antihypertensive therapy; follow up with your caregiver within 1 week. Document Released: 11/18/2012 Document Reviewed: 11/18/2012 ExitCare Patient Information 2015 [employer]. This information is not intended to replace advice given to you by your health care provider. Make sure you discuss any questions you have with your health care provider. No follow up information was provided. Extracted from: Title: Office Visit Note Author: Shahid Feldman MD Date: 01/30/15 Assessment/Plan Concern about heart disease without diagnosis Essential hypertension Prostate cancer Overall I perceive him to be doing well, in fact better than age-related average. Certainly he remains quite active and that is well tolerated. We discussed cardiovascular risk factors and the concept of endothelial dysfunction rather than just "corrosion building up on the pipes". We discussed options for trying to lower cardiovascular risk. Aspirin is relatively contraindicated due to low platelet count. He would prefer to avoid statins and his LDL was only slightly elevated. On the whole I think it's reasonable just to continue current medications. We discussed whether further testing should be done . At this point I don ' t see an indication for further testing and without a higher suspicion, the likelihood of false positive is probably unacceptably high. I recommended observation and follow-up if he has change in symptoms. Otherwise follow-up in 6 months when he'll be due for CRMMP. Continue current medications in the meantime.
--- OUTSIDE RECORDS SUMMARY | 2016-07-18 06:08 | XMS REPORT | Referral Summary ---
Author Author [facility] Family [facility] Organization [facility] Address Unknown Phone Unavailable Care Team Providers Care Medical/Surgery Registered Nurse Name Role Phone Dillan Feldman Primary Care Physician [phone] Encounter VC Date(s): 08/04/14 - 08/04/14 [facility] [address] [place] [address]- Discharge Diagnosis: Prostate cancer Discharge Diagnosis: Adenomatous colon polyp Discharge Diagnosis: Actinic keratosis Discharge Diagnosis: Hyperlipidemia Discharge Diagnosis: Essential hypertension Discharge Diagnosis: Thrombocytopenic disorder Discharge Disposition: 01-Home or Self Care Attending Physician: hSahid Feldman MD Admitting Physician: Shahid Feldman MD [...] day), # 90 caps, 2 Refill(s), Pharmacy: [facility] Rx, 1 caps Oral Bedtime (once [...] for any changes. Visit a skin doctor (cloth doubling machine operator ) every year for a skin exam. SEEK MEDICAL CARE IF: Your skin does not heal and becomes irritated, red, or bleeds. You notice any changes or new growths on your skin. Document Released: 05/23/2009 Document Revised: 05/18/2012 Document Reviewed: ExitCare Patient Information 2014 [employer] [facility]. No follow up information was provided. Extracted [...]
--- OUTSIDE RECORDS SUMMARY | 2016-07-18 06:08 | XMS REPORT | Referral Summary ---
Author Author [facility] Organization [facility] Address Unknown Phone Unavailable Care Team Providers Care Rescue Worker Name Role Phone Dillan Feldman Primary Care Physician [phone] Encounter VC Date(s): 01/18/15 - 01/18/15 [facility] [address] [place] [address] Discharge Disposition: 01-Home or Self Care Attending [...] day), # 90 caps, 2 Refill(s), Pharmacy: [facility], 1 caps Oral Bedtime (once a [...]
--- OUTSIDE RECORDS SUMMARY | 2016-07-18 06:08 | XMS REPORT | Referral Summary ---
Author Author [facility] Family Medicine Organization [facility] Address Unknown Phone Unavailable Care Team Providers Care Administrative Receptionist Name Role Phone Dillan Feldman Primary Care Physician [phone] Encounter Date(s): 03/28/16 - 03/28/16 [facility] [address] [place] [address]- Discharge Diagnosis: Right bundle branch block Discharge Diagnosis: Essential hypertension Discharge Diagnosis: Prostate cancer Discharge Diagnosis: Thrombocytopenia Discharge Diagnosis: Preoperative examination Discharge Disposition: -Home or Self Care Attending Physician: Shahid Feldman MD Admitting Physician: Shahid Feldman MD Referring Physician: PROVIDER, NOTINSYSTEM Vital Signs Most recent to 1 oldest [Reference Range]: Peripheral Pulse 84 bpm Rate [60-100 bpm] (03/28/16 1:50 PM) Blood Pressure 130/60 mmHg [90-140/60-90 mmHg] (03/28/16 1:50 PM) Problem List Condition Effective Dates Status [...] Daily, # 90 tabs, 3 Refill(s), Pharmacy: [facility] # [id number], 1 tabs Oral Daily Start Date: 02/08/16 [...] BY MOUTH DAILY, # 180 caps, eRx: [facility] #[id number], TAKE TWO CAPSULES BY MOUTH DAILY Start [...] smoker Assessment and Plan Extracted from: Title: PREOP Author: Shahid Feldman MD Date: 03/28/16 Patient: WES SALMERON Age: 70 years Sex: Male : 1945 Associated Diagnoses: Prostate cancer; Thrombocytopenia; Right bundle branch block; Essential hypertension Author: Shahid Feldman MD Visit Information Visit type: Preoperative. Accompanied by: No one. Source of history: Self. History limitation: None. Chief Complaint 03/28/2016 13:50 COMBAT ENGINEER PRE OP CLEARANCE History of Present Illness Assessment and Plan: Overall patient appears to be stable and doing well. I believe the benefits outweigh the risks and he is therefore "cleared" for the anticipated procedure. An EKG was obtained today and compared to a prior EKG of 05/02/2009. Right bundle branch block is stable. There are minor differences but not obviously significant differences. I don't think that any further cardiac workup is currently needed. I will send a copy of today's note to Dr. Christopher Etienne regarding procedure clearance. Follow up as needed. HPI: 70 year old male patient is here for preoperative assessment today. Anticipated procedure: Prostatectomy Surgeon: Dr. Christopher Etienne at [facility] in [place], [place] Scheduled date: 04/09/16 Medication considerations. His medication list was reviewed. I recommended the following: stop vitamin/supplements prior to surgery Chronic disease considerations: There is no history of chronic lung disease or asthma, known coronary artery disease, or diabetes. Patient has a history of RBBB; he was seen by Dr. Ortiz in 2009. Normal cardiac catheterization in 2009. History of thrombocytopenia- Patient is stable at this time. Preoperative lab assessments: EKG Advised that preop labs are sometimes not covered by insurance. Functional assessment: Discussed return home post surgery. Patient has adequate support at home. Considerations for surgical prophylaxis: None No specific anesthesia recommendations. Advanced directives. He does have DPOA for healthcare with his as his agent. Risk versus benefit considerations discussed. I advised that the decision is one of considering risk versus benefit rather than simply "clearance". I believe the benefits anticipated to outweigh the risks and is therefore "cleared " for the anticipated procedure. ROS: Constitutional: Generally feeling well with no weight changes. Respiratory: No cough, shortness of breath, or wheezing. Cardiovascular: No chest pains or palpitations. He has active and has no chest discomfort or other cardiac symptoms with exercise. Gastrointestinal: No abdominal pain or change in bowel habits. Urinary: No urinary problems. PFSH: Medical Problem list reviewed from EHR. He had recent prostate MRI and repeat biopsy with one biopsy showing [place] 3+4=7 score. PHYSICAL EXAM: Appears in no acute distress. Oral mucous membranes are moist and appears well hydrated. HEENT. TMs clear. Nasal mucosa unremarkable. No sinus tenderness. Oropharynx normal. Neck supple without adenopathy or JVD. Adequate extension to allow intubation. Lungs sounds are clear. Heart regular rate and rhythm. Abdomen soft, nontender, without organomegaly. Extremities without edema. No focal neurologic abnormalities. Health Status Allergies: Allergic Reactions (Selected) No Known Medication Allergies Current medications: (Selected) Prescriptions Prescribed losartan 25 mg oral tablet: 25 mg=1 tabs, Oral, Daily, 90 tabs, 3 Refill(s) tamsulosin 0.4 mg oral capsule: See Instructions, TAKE TWO CAPSULES BY MOUTH DAILY, 180 caps Documented Medications Documented Glucosamine Chondroitin MSM Complex: 2 tabs, Oral, Daily Lutein 20 mg oral tablet: 1 tabs, Oral, Daily, 30 tabs Probiotic Formula: 1 caps, Oral, Daily, PRN: Abdominal Cramping Vitamin D with Minerals oral tablet: 1 tabs, Oral, Daily elppa CoQ10: 100 mg, Oral, Daily ibuprofen: 200 mg, Oral, Daily, PRN: as needed for pain magnesium citrate: 500 mL, Oral, Once multivitamin: 1, Oral, Daily, Home Medications (10) Active elppa CoQ10 100 mg, Oral, Daily Glucosamine Chondroitin MSM Complex 2 tabs, Oral, Daily ibuprofen 200 mg, PRN, Oral, Daily losartan 25 mg oral tablet 25 mg=1 tabs, Oral, Daily Lutein 20 mg oral tablet 20 mg=1 tabs, Oral, Daily magnesium citrate 500 mL, Oral, Once multivitamin 1, Oral, Daily Probiotic Formula 1 caps, PRN, Oral, Daily tamsulosin 0.4 mg oral capsule See Instructions Vitamin D with Minerals oral tablet 1 tabs, Oral, Daily Problem list: All Problems Actinic keratosis (disorder) / 3036908408 / Confirmed Actinic keratosis / 39632 / Confirmed Adenomatous colon polyp / 9241867 / Confirmed Backache (finding) / 832711685 / Confirmed Backache / 84656 / Confirmed Benign neoplasm of colon (disorder) / 317282110 / Confirmed BPH (benign prostatic hypertrophy) / 36363 / Confirmed Chicken pox / 68570 / Confirmed Colonic polyps / 84187 / Confirmed Dyslipidemia / 209404 / Confirmed Epididymal pain / 6756628 / Confirmed Essential hypertension (disorder) / 78578032 / Confirmed Fibula fracture / 434513 / Confirmed Hyperlipidemia / 20523 / Confirmed Hypertension / 29568 / Confirmed Peptic ulcer disease / 87014 / Confirmed Prostate cancer / 22734 / Confirmed Thrombocytopenia / 84519 / Confirmed Thrombocytopenic disorder (disorder) / 654616505 / Confirmed Tubular adenoma of rectum / 8368559 / Confirmed Ulcers / 00018 / Confirmed, Active Problems (21) Actinic keratosis Actinic keratosis (disorder) Adenomatous colon polyp Backache Backache (finding) Benign neoplasm of colon (disorder) BPH (benign prostatic hypertrophy) Chicken pox Colonic polyps Dyslipidemia Epididymal pain Essential hypertension (disorder) Fibula fracture Hyperlipidemia Hypertension Peptic ulcer disease Prostate cancer Thrombocytopenia Thrombocytopenic disorder (disorder) Tubular adenoma of rectum Ulcers Histories Past Medical History: Active Prostate cancer (50651): Onset in 2012 at 67 years. Thrombocytopenia (79561): Onset in 2009 at 64 years. Peptic ulcer disease (42663): Onset in 1973 at 28 years. Hypertension (99773) Backache (46033) Adenomatous colon polyp (4368866) Actinic keratosis (42599) Hyperlipidemia (64226) Colonic polyps (65200) Chicken pox (00111) Ulcers (52162) Epididymal pain (5027284) Dyslipidemia (858238) Tubular adenoma of rectum (1585833) Fibula fracture (618645) BPH (benign prostatic hypertrophy) (84573) Family History: Hypertension Father Mother Heart disease Father Grandfather (P) Grandmother (M) Cancer of colon Father Prostate cancer... Father Brother Bladder cancer... Mother Procedure history: C6-7 translaminar ([id number]) on 06/04/2012 at 67 Years. S/P cardiac catheterization (487084) in 2009 at 64 Years. S/P hemorrhoidectomy (264204) in 2006 at 61 Years. S/P colonoscopy (144862) on 04/14/2006 at 60 Years. Comments: 08/02/2015 15:18 - Shahid Feldman MD Colonscopy on 05/27/11 neg. 5 year follow up advised - due 2017. 12/21/2013 12:12 - JulyNiharikaL, fam hx colon ca; repeat 5 years S/P ORIF fibula (82241688) in 1982 at 37 Years. Hernia repair (92997412) in 1967 at 22 Years. H/O circumcision (0282780) in 1957 at 12 Years. Bone marrow biopsy (636576720). Social History Social & Psychosocial Habits Alcohol 12/21/2013 Use: Current Comment: rarely - 12/21/2013 12:08 - JulyNiharika Employment/School 08/04/2014 Status: Retired Home/Environment 08/04/2014 Feels unsafe at home: No Lives with: Spouse Tobacco 10/19/2013 Use: Never smoker . Physical Examination Vital Signs 03/28/2016 13:50 COMBAT ENGINEER Peripheral Pulse Rate 84 bpm Systolic Blood Pressure 130 mmHg Diastolic Blood Pressure 60 mmHg Measurements from flowsheet : Measurements 03/28/2016 13:50 COMBAT ENGINEER Height/Length Measured 187.96 cm Weight Measured 91.7 kg BSA Estimated 2.19 m2 Body Mass Index 25.96 kg/m2 Weight - lbs 202.164 lb Height - In 74 inch Health Maintenance Health Maintenance Pending (in the next year) OverDue Pneumococcal Vaccine due 08/10/13 and every 1 years Hypertension Management-Blood Pressure Follow Up due 11/20/14 and every 6 months Due Hypertension Management-Education due 03/28/16 Variable frequency Varicella Vaccine Dose 1 due 03/28/16 One-time only Due In Future Tetanus Vaccine not due until 06/16/16 and every 10 years Influenza Vaccine not due until 11/08/16 and every 1 years Prostate Cancer Screening not due until 01/04/17 and every 1 years Satisfied (in the past 1 year) Satisfied Diabetes Screening on 08/02/15. Satisfied by CONTRIBUTOR_SYSTEM, [employer] Diabetes Screening on 08/02/15. Satisfied by Shahid Feldman MD Hypertension Management-BMP on 08/02/15. Satisfied by CONTRIBUTOR_ SYSTEM, [employer] Hypertension Management-BMP on 08/02/15. Satisfied by CONTRIBUTOR_ SYSTEM, [employer] Hypertension Management-BMP on 08/02/15. Satisfied by CONTRIBUTOR_ SYSTEM, [employer] Hypertension Management-BMP on 08/02/15. Satisfied by CONTRIBUTOR_ SYSTEM, [employer] Hypertension Management-BMP on 08/02/15. Satisfied by CONTRIBUTOR_ SYSTEM, [employer] Hypertension Management-BMP on 08/02/15. Satisfied by CONTRIBUTOR_ SYSTEM, [employer] Hypertension Management-BMP on 08/02/15. Satisfied by CONTRIBUTOR_ SYSTEM, [employer] Hypertension Management-BMP on 08/02/15. Satisfied by CONTRIBUTOR_ SYSTEM, [employer] Hypertension Management-BMP on 08/02/15. Satisfied by CONTRIBUTOR_ SYSTEM, [employer] Hypertension Management-BMP on 08/02/15. Satisfied by CONTRIBUTOR_ SYSTEM, [employer] Hypertension Management-BMP on 08/02/15. Satisfied by Shahid Feldman MD Influenza Vaccine on 01/12/16. Satisfied by Joshua Vaca APRN Influenza Vaccine on 01/12/16. Satisfied by Mariangel Crouch MA Lipid Screening on 08/10/15. Satisfied by [employer]OR[employer]SYSTEM, [employer] Lipid Screening on 08/10/15. Satisfied by [employer], [employer] Lipid Screening on 08/10/15. Satisfied by Shahid Feldman MD Prostate Cancer Screening on 01/05/16. Satisfied by CONTRIBUTOR_ SYSTEM, [employer] Prostate Cancer Screening on 01/05/16. Satisfied by Arnol Teague MD Prostate Cancer Screening on 07/19/15. Satisfied by CONTRIBUTOR_ SYSTEM, [employer] Prostate Cancer Screening on 07/19/15. Satisfied by Lois Draper MD Zoster Vaccine on 08/03/15. Satisfied by Mariangel Crouch MA Zoster Vaccine on 08/03/15. Satisfied by Krista Dumont APRN Review / Management Documentation reviewed: Reviewed prior records, Flowsheet, Reviewed home medications. Impression and Plan Diagnosis Prostate cancer (VCG96-IS C61, Discharge, Medical). Thrombocytopenia (XHG94-VZ D69.6, Discharge, Medical). Right bundle branch block (MCG63-NM I45.10, Discharge, Medical). Essential hypertension (TST52-EV I10, Discharge, Medical). Professional Services 03/28/2016 14:46 This note is prepared by Janell Infante, acting as a medical records clerk for Dr. Shahid Feldman. The documentation recorded by the scribe reflects the service I personally performed and the decisions made by me. Addendum He does have mild thrombocytopenia which is stable. This is previously been evaluated by by a bonderizer operator. I don't think this should prohibit planned surgery. Shahid Feldman MD on March 28, 2016 17:43 COMBAT ENGINEER
--- OUTSIDE RECORDS SUMMARY | 2016-07-18 06:09 | XMS REPORT | Referral Summary ---
Author Author [facility] Organization [facility] Address Unknown Phone Unavailable Care Team Providers Care Judge Clerk Name Role Phone Dillan Feldman Primary Care Physician [phone] Encounter VC Date(s): 08/04/14 - 08/04/14 [facility] [address] [place] [address]- Discharge Diagnosis: Prostate cancer Discharge Diagnosis: Adenomatous [...] for any changes. Visit a skin doctor (paint mixer ) every year for a skin exam. SEEK MEDICAL CARE IF: Your skin does not heal and becomes irritated, red, or bleeds. You notice any changes or new growths on your skin. Document Released: 05/23/2009 Document Revised: 05/18/2012 Document Reviewed: ExitCare Patient Information 2014 [employer] [facility]. No follow up information was provided. Extracted [...]
--- OUTSIDE RECORDS SUMMARY | 2016-07-18 06:09 | XMS REPORT | Referral Summary ---
Author Author [facility] Organization [facility] Address Unknown Phone Unavailable Care Team Providers Care Polystyrene Bead Molder Name Role Phone Dillan Feldman Primary Care Physician [phone] Encounter VC Date(s): 08/03/15 - 08/03/15 [facility] [address] [place] [id number] Discharge Disposition: 01-Home or Self Care Attending Physician: Krista Dumont APRN Admitting Physician: Krista Dumont APRN Vital Signs Most recent to 1 oldest [Reference Range]: Peripheral Pulse 80 bpm Rate [60-100 bpm] (08/03/15 10:58 AM) Blood Pressure 142/64 mmHg [90-140/60-90 mmHg] *HI* (08/03/15 10:58 AM) Problem List Condition Effective Dates Status [...] # 45 tabs, 0 Refill(s) , Pharmacy: [facility] #[id number], 0.5 tabs Oral Daily,Instr:WILL BE DUE FOR [...]
--- OUTSIDE RECORDS SUMMARY | 2016-07-18 06:09 | XMS REPORT | Continuity of Care Document ---
Author Author [facility] Organization [facility] Address Unknown Phone Unavailable Allergies Active Description Code Type Severity Reaction Onset Reported/Identified Relationship to Patient Clinical Status Yes No Known Medication Allergies NKMA N/A N/A 10/19/2013 Medications Problems Procedures Results Test Result Range Vitamin D, 25-Hydroxy - 08/02/15 10:00 25-Hydroxy D Total 47 ng/mL 30-74 25-Hydroxy D2 <7 ng/mL 25-Hydroxy D3 47 ng/mL Encounters ACCT No. Visit Date/Time Discharge Status Pt. Type Provider Facility Loc./Unit Complaint [id number] 04/17/2016 10:14:00 2016 23:59:00 DIS Outpatient Shahid Feldman V [facility] REMOVE CATHETER AFTER PROSTATE SURGERY [id number] 03/28/2016 13:46:00 2016 23:59:00 DIS Outpatient Shahid Feldman V [facility] FM pre op clearance DOS 1.31.17 [id number] 03/28/2016 00:01:00 2016 23:59:00 DIS Outpatient Shahid Feldman V [facility] Card I45.10 [id number] 02/08/2016 14:15:00 2015 23:59:00 DIS Outpatient Shahid Feldman V [facility] FM TCPA 6 MO CDM HTN [id number] 01/12/2016 13:53:00 2015 23:59:00 DIS Outpatient Joshua Vaca [facility] FLU INJ [id number] 12/11/2015 13:41:00 2015 23:59:00 DIS Outpatient Arnol Teague [facility] [place] PT WANTS TO DISCUSS REFERRAL [id number] 10/31/2015 10:07:00 2015 23:59:00 DIS Outpatient Arnol Teague [facility] [place] 4K SCORE [id number] 10/23/2015 13:14:00 2015 23:59:00 DIS Outpatient Arnol Teague [facility] [place] HAS CONCERNS HE WOULD LIKE TO ADDRESS [id number] 09/28/2015 10:59:00 2015 23:59:00 DIS Outpatient Tandoc Krista E [facility] FM WIND TUNNEL MECHANIC [id number] 09/14/2015 10:51:00 2015 23:59:00 DIS Outpatient Tandoc, Krista E [facility] FM counseling [id number] 08/31/2015 10:51:00 2015 23:59:00 DIS Outpatient Tandoc Krista E [facility] FM counseling [id number] 08/17/2015 10:52:00 2015 23:59:00 DIS Outpatient Tandoc Krista E [facility] FM COUNSELING [id number] 08/03/2015 10:46:00 2015 23:59:00 DIS Outpatient Tandoc Krista E [facility] FM COUNSELING [id number] 08/02/2015 08:32:00 2015 23:59:00 DIS Outpatient Shahid Feldman V [facility] FM 6MTH CRMMP FROM 01-30 [id number] 07/26/2015 08:50:00 2015 23:59:00 DIS Outpatient Arnol Teague [facility] [place] 6 MPO /PSA [id number] 01/30/2015 09:44:00 2014 23:59:00 DIS Outpatient Shahid Feldman V [facility] FM 6 mth CDM HTN [id number] 01/23/2015 08:40:00 2014 23:59:00 DIS Outpatient Arnol Teague [facility] [place] 6 mth NAA PSA for [id number] 01/18/2015 15:54:00 2014 23:59:59 CLS Outpatient Joshua Vaca [facility] FM FLU SHOT [id number] 10/25/2014 10:50:00 2014 23:59:00 DIS Outpatient Krista Dumont [facility] FM recheck med and lab [id number] 10/21/2014 15:37:00 2014 23:59:59 CLS Outpatient Krista Dumont [facility] FM recent feeling of depression and anxiety
--- OUTSIDE RECORDS SUMMARY | 2016-07-18 06:09 | XMS REPORT | Referral Summary ---
Author Author [facility] Organization [facility] Address Unknown Phone Unavailable Care Team Providers Care Lamp Tester And Inspector Name Role Phone Dillan Feldman Primary Care Physician [phone] Encounter VC Date(s): 10/21/14 - 10/21/14 [facility], [address] [place] [id number] Discharge Diagnosis: Depression Discharge Disposition: 01-Home or Self Care Attending Physician: Krista Dumont APRN Admitting Physician: Krista Dumont APRN Referring Physician: Shahid Feldman MD Vital Signs Most recent to 1 oldest [Reference Range]: Peripheral Pulse 66 bpm Rate [60-100 bpm] (10/21/14 3:47 PM) Blood Pressure 134/82 mmHg [90-140/60-90 mmHg] (10/21/14 3:47 PM) SpO2 96 % (10/21/14 3:47 PM) Problem List Condition Effective Dates Status [...] Daily, # 90 caps, 4 Refill(s), Pharmacy: [facility] # [id number], 1 caps Oral Daily Start Date: 04/17/15 Status: Ordered Flomax 0.4 mg oral capsule 1 caps, Oral, Bedtime (once a day), # 90 caps, 2 Refill(s), Pharmacy: [facility], 1 caps Oral Bedtime (once a [...] # 45 tabs, 0 Refill(s) , Pharmacy: [facility] #[id number], 0.5 tabs Oral Daily,Instr:WILL BE DUE FOR [...]
--- OUTSIDE RECORDS SUMMARY | 2016-07-18 06:09 | XMS REPORT | Referral Summary ---
Author Author [facility] Organization [facility] Address Unknown Phone Unavailable Care Team Providers Care Cage Maker Name Role Phone Dillan Feldman Primary Care Physician [phone] Encounter Date(s): 01/23/15 - 01/23/15 [facility] [address] [place], [place] [address] Discharge Diagnosis: PC (prostate cancer) Discharge Disposition: 01-Home or Self Care Attending Physician: Arnol Teague MD Admitting Physician: Arnol Teague MD Referring Physician: Shahid Feldman MD Vital Signs Most recent to 1 oldest [Reference Range]: Respiratory Rate 18 br/min [14-20 br/min] (01/23/15 8:58 AM) Blood Pressure 130/70 mmHg [90-140/60-90 mmHg] (01/23/15 8:58 AM) Problem List Condition Effective Dates Status [...] day), # 90 caps, 2 Refill(s), Pharmacy: [facility], 1 caps Oral Bedtime (once [...] Visit Note Author: Arnol Teague MD Date: 01/23/15 Assessment/Plan PC (prostate cancer)
[2016-07-18] MEDS ORDERED: SILD25TA PO (06:24)
[2016-07-18] MEDS ORDERED: LR 1,000 ML IV SCH (07:00)
[2016-07-18] MEDS ORDERED: LIDOCAINE 1% (10mg/ml) 2ml SDV INJ ONE (07:00)
--- NOTE | 2016-07-18 07:34 | ANESPREOP ---
Anesthesia Record Date and Time DATE: 07/18/16 TIME: 07:32 Pre-Op Diagnosis Screening Proposed Surgical Procedure COLONOSCOPY NPO since: Midnight Allergies: Coded Allergies: NKDA (Verified Allergy, Unknown, 07/18/16) Ht/Wt/BMI Height: 6 ' 2.00 " Weight: 88.800 kg BMI: 25.1 kg/m2 Vital Signs Date Time Temp Pulse Resp B/P Pulse Ox O2 Delivery O2 Flow Rate FiO2 07/18/16 06:05 98.1 71 16 153/82 95 Room Air Medications Inpatient Medications Current Medications Medications (Trade) Dose Ordered Sig/Seferino Start Time Stop Time Status Last Admin Dose Admin Lactated Ringer's (Lactated Ringers) 1,000 ml @ 30 mls/hr Q24H 07/18/16 07:00 07/18/16 06:35 30 MLS/HR Losartan Potassium (Losartan Potassium) 25 Mg Tablet, 1 TAB PO DAILY, (Reported) Last Taken: on 07/18/16 0540 Sildenafil Citrate (Viagra) 25 Mg Tablet, 25 MG PO DAILY, (Reported) Last Taken: on 07/04/16 0800 Currently on Beta Lyubov: No Medical/Surgical History Anesthesia PMH: Reports: *Hypertension (TAKES MEDS), Arthritis (SOME), Cancer ( PROSTATE ), Hiatal Hernia (1973), Reflux (ON OCCASION), Denies: *Angina, * Diabetes, *Dyspnea, *SD, Anesthesia Reactions (NO AIRWAY ISSUES), Asthma, Blood Transfusion Reac, CHF, COPD, CVA/Stroke/TIA, Clotting Problems, Deep Vein Thrombosis, Glaucoma, Headaches, Hepatitis, Malignant Hyperthermia, Pneumonia, Renal Disease, Rheumatic Fever, Seizures, Sleep Apnea, Thyroid Disease, Tuberculosis Smoking Status: Never smoker Has pt. smoked today?: No Use Chewing Tobacco?: No Second Hand Exposure: No Substance Use Type: does not use Alcohol Intake: none Past Surgical History Orthopedic Surgeries: Yes - BROKEN R LEG/FOOT - SCREWS PLACED & REMOVED Abdominal Surgeries: Yes - HERNIA REPAIR Genitourinary Surgeries: No Cardiac Surgeries: No Endocrine Surgeries: No Reproductive Surgeries: Yes - CIRCUMCISM, PROSTATECTOMY Neurological Surgeries: No Ear Surgeries: No Nose Surgeries: No Throat Surgeries: No Other Surgeries: Yes - MOLE REMOVED FROM BACK, HEMORRHOIDECTOMY Anesthesia Adverse Reactions: FOUND none Family Hx of Anesthesia Advers: none Hx of Motion Sickness: No Pertinent Findings EKG Rhythm: Sinus Rhythm Physical Exam Respiratory: Lungs clear Cardiovascular: FOUND Regular rate, rhythm Airway Assessment Mallampati Score: II TMD: 3 Fingerbreadths Neck Extension: Fair Overall Assessment: No Airway Concerns ASA: 2 Plan Anesthesia Plan: TIVA Discussion Discussed risks/options/alternatives of anesthesia and questions answered. Patient consents. Nursing pain assessment noted. Attestation Statement Prior to the delivery of any anesthetic medication, I examined the patient, developed the plan, obtained the patient's consent and discussed the risk and benefits of the procedure with the patient/guardian. STACEY LUQUE MACHINE TURNER July 18, 2016 07:34
[2016-07-18] MEDS ORDERED: PROPOFOL 500mg 50 ML IV ONE (07:47)
[2016-07-18] MEDS ORDERED: PROPOFOL 200mg 40 ML IV ONE (08:23)
[2016-07-18 08:28] VITALS: BP 126/53; PULSE 58; RESP 16; TEMP 97.5; O2SAT 97
[2016-07-18 08:40] VITALS: BP 99/50; PULSE 56; RESP 14; O2SAT 96
[2016-07-18 08:55] VITALS: BP 123/66; PULSE 54; RESP 14; O2SAT 98
[2016-07-18 09:10] VITALS: BP 108/58; PULSE 57; RESP 16; O2SAT 97
--- NOTE | 2016-07-18 09:23 | ANESPO ---
Post-Op Note Date 07/18/16 Time: 09:22 Status Pt Participated in Evaluation: Pt participated in person Vital Signs Date Time Temp Pulse Resp B/P Pulse Ox O2 Delivery O2 Flow Rate FiO2 07/18/16 09:10 57 16 108/58 97 Room Air 07/18/16 08:28 97.5 Respiratory Function: Airway patent Cardiovascular Function: Regular pulse Telemetry Pattern: SR Mental Status: Alert/oriented Pain Level Intensity: 0 Hydration: Taking po fluids Complications during Recovery None apparent Follow-Up Instructions Instructions Per Surgeon STACEY LUQUE CRNA July 18, 2016 09:23
[2016-07-18 09:25] VITALS: BP 126/65; PULSE 56; RESP 16; O2SAT 98
--- NOTE | 2016-07-18 13:37 | OPNOTEF ---
DATE OF SERVICE July 18, 2016 SURGEON Topher Bustillo MD PREOPERATIVE DIAGNOSIS Personal history of adenomatous colon polyps, family history for colon cancer in a first-degree relative. POSTOPERATIVE DIAGNOSES Personal history of adenomatous colon polyps, family history for colon cancer in a first-degree relative, colonic polyps in the cecum x 2, mid ascending colon x 2, hepatic flexure x 1 PROCEDURE Colonoscopy with polypectomies via cold biopsy technique and snare polypectomy technique. ANESTHESIA TIVA BRIEF HISTORY/INDICATIONS Mr. Mon is a 71-year-old gentleman who presents today to [facility] to undergo a colonoscopy as a result of his family history for colon cancer within his father as well as secondary to his personal history for adenomatous colon polyps in the past. For completeness please refer to notes included in in the patient's chart. FINDINGS Upon colonoscopy was no evidence for angiodysplastic lesions, diverticula or roxy malignancies. The patient was found to have two polyps within the cecum, two polyps within the mid ascending colon, a single polyp at the hepatic flexure. These polyps ranged on the order of 5 mm up to 1 cm in dimension and were removed in their entirety either via cold biopsy technique or snare polypectomy technique. DESCRIPTION OF PROCEDURE After informed consent was obtained the patient was brought to the endoscopy suite and placed on the table in left lateral decubitus position. Patient subsequently underwent total intravenous anesthesia by the nurse event crew technician at my request. Formal timeout was then completed. A digital rectal exam was performed. Normal sphincter tone. No rectal masses were appreciated. An Olympus colonoscope was inserted into the anus and advanced through the lumen of the colon under direct visualization at all times until the cecum was ascertained. Triangulation of the tenia coli, ileocecal valve and appendiceal lumen were all visualized. Within the cecum the patient was found to have two polyps. One polyp was sessile in nature and on the order of about 1 cm in dimension and was removed via snare polypectomy technique. The second polyp was more diminutive in nature and on the order of about 5 mm in diameter and removed in its entirety via cold biopsy technique. These were placed in the same container. The scope was drawn back to the mid ascending colon where two additional polyps were identified. As above, one polyp was slightly larger and on the order of about 1 cm in dimension and the second polyp was smaller, on the order of 5 mm in diameter. These polyps were also removed via cold biopsy technique and via snare polypectomy technique. The scope was drawn back to the level of the hepatic flexure. A pedunculated polyp that was on the order of about 1 cm in dimension was identified. A snare was placed around the base of the polyp and the polyp was transected and suctioned into the colonic trap to be submitted for pathologic evaluation. This was placed within a third container. The colonoscope was continued to be withdrawn until it was brought forth back to the rectal vault. J-maneuver was performed. No worrisome perianal pathology was noted. Scope was allowed to straighten and was withdrawn through the anal verge. The entire colon was without evidence for angiodysplastic lesions, diverticula or roxy malignancies. Patient tolerated the procedure without difficulty and was sent back to the preop area in stable condition. Await biopsy results from today's multiple polypectomies and will proceed accordingly with further recommendations thereafter. KATHRYN
== END 2016-07-18 09:34 | disposition home or self-care (01) ==
LOC: SCU 06:03
PROVIDERS: ATTEND Surgery
DX: Z12.11 Encounter for screening for malignant neoplasm of colon (principal); D12.0 Benign neoplasm of cecum; D12.2 Benign neoplasm of ascending colon; D12.3 Benign neoplasm of transverse colon; Z86.010 Personal history of colon polyps; Z80.0 Family history of malignant neoplasm of digestive organs; I10 Essential (primary) hypertension; D69.6 Thrombocytopenia, unspecified; C61 Malignant neoplasm of prostate; I45.10 Unspecified right bundle-branch block; E78.5 Hyperlipidemia, unspecified; Z79.1 Long term (current) use of non-steroidal anti-inflammatories (NSAID); Z79.899 Other long term (current) drug therapy
CPT/HCPCS: 45380; 45385; J2704; J7120